=== PATIENT | female | born 1960 | race African-American/Black ===

== ENCOUNTER 2018-10-02 15:40 | Emergency (ER) | payer BC ==
[~2018-10-02] VITALS: Ht 167.6 cm; Wt 143.3 kg
[2018-10-02 15:40] VITALS: BP 202/95
--- NOTE | 2018-10-02 16:25 | PHYS DOC ---
Past Medical History Past Medical History: Arthritis, High Cholesterol, Hypertension Additional Past Medical Histor: blood clots Past Surgical History: Cholecystectomy, Hysterectomy, Splenectomy Alcohol Use: Rarely Drug Use: Marijuana Adult General Chief Complaint Chief Complaint: LOWEREXTREMITY INJURY HPI HPI Patient is a 57 year old AA female who presents to the ER with complaints of lateral right knee and lateral R ankle pain after a fall 2 days ago. Pt states she was leaving work on Wednesday at 1500 when she rolled her R ankle and fell. She has been applying ice and elevating the affected extremity but continues to have pain and swelling. Pt currently rates her pain an 8/10 at rest, she took 2 tramadol 3 hours prior to arrival. With weight bearing and palpation the pain increases to 10/10. ROS Pt denies any numbness, tingling, or weakness of affected extremity. She denies any head, neck, or back pain. She denies any LOC with the fall and denies any n/v since the fall. All other ROS is neg unless otherwise noted in HPI. Review of Systems Review of Systems See Above Current Medications Current Medications Current Medications Medications (Trade) Dose Ordered Sig/Darius Start Time Stop Time Status Last Admin Dose Admin Acetaminophen (Tylenol) 650 mg 1X ONCE 10/02/18 16:45 10/02/18 16:46 DC 10/02/18 17:02 650 MG Acetaminophen/ Hydrocodone Bitart (Lortab 5/325) 1 tab 1X ONCE 10/02/18 18:15 10/02/18 18:16 Allergies Allergies Allergies Coded Allergies Type Severity Reaction Last Updated Verified lisinopril Allergy Unknown 10/02/18 Yes naproxen Allergy Unknown 10/02/18 Yes Physical Exam Physical Exam See Above Constitutional: Well developed, well nourished, no acute distress, non-toxic appearance, obese. [] HENT: Normocephalic, atraumatic, bilateral external ears normal, nose normal. [] Eyes: conjunctiva normal, no discharge. [] Neck: Normal range of motion, no stridor. [] Cardiovascular:Heart rate regular rhythm Lungs & Thorax: Respirations even and unlabored, no retractions, no respiratory distress Skin: Warm, dry, no erythema, no rash. [] Extremities: R lateral ankle TTP, no deformity, no crepitus, limited ROM due to pain, 1+ edema; R lateral knee tightness, no cyanosis, no bruising, no clubbing, ROM intact, no edema. [] Neurologic: Alert and oriented X 3, no focal deficits noted. [] Psychologic: Affect normal, judgement normal, mood normal. [] Current Patient Data Vital Signs Vital Signs Date Time Temp Pulse Resp B/P (MAP) Pulse Ox O2 Delivery O2 Flow Rate FiO2 10/02/18 15:40 97.6 57 13 202/95 (130) 96 Room Air 97.6 EKG EKG [] Radiology/Procedures Radiology/Procedures PROCEDURE: ANKLE RIGHT 3V ANKLE RIGHT 3V Clinical Indication: Fall 2 days ago. Continued pain. Comparison: None. Findings: There is acute traumatic nondisplaced fracture of the lateral malleolus. Distal fracture line at the level of the tibial plafond. There is lateral ankle soft tissue swelling that is mild. There is tibiotalar joint space narrowing. There are small calcaneal bone spurs. IMPRESSION: Acute traumatic fracture of the lateral malleolus.[] PROCEDURE: KNEE RIGHT 3V KNEE RIGHT 3V Clinical Indication: Fall 2 days ago continued right knee pain. Comparison: None. Findings: Patella in anatomic position. There are tricompartmental marginal osteophytes. There is severe medial and lateral compartment joint space narrowing. No obvious joint effusion. There is no acute fracture. The mineralization is normal. IMPRESSION: No acute fracture. Course & Med Decision Making Course & Med Decision Making Pertinent Labs and Imaging studies reviewed. (See chart for details) dx: R knee pain, R lateral malleolus fx. Pt was placed in a stirrup splint and crutch gait instructions given. She was given 650 of Tylenol and 1 hydrocodone 5/325 mg tablet in the ER. Prescription written for hydrocodone 5/325 mg tabs #12. Follow up with Dr. Connelly, call in the morning to schedule an appointment. Patient verbalized an understanding of home care, medications, follow-up, and return to ED instructions and was in agreement with the plan of care. Dragon Disclaimer Dragon Disclaimer This electronic medical record was generated, in whole or in part, using a voice recognition dictation system. Departure Departure Impression: Primary Impression: Fracture of lateral malleolus of right ankle Disposition: HOME, SELF-CARE Condition: STABLE Referrals: LEX CONNELLY MD Patient Instructions: Ankle Fracture, [id number] Additional Instructions: Fill prescription(s) and use as directed. Recommend application of ice, elevation, and rest of affected extremity. Use the crutches that were provided. Wear the splint that was placed until follow up appointment with Dr. Connelly, call in the morning to schedule appointment. Return to the ER if your symptoms worsen. Scripts Hydrocodone Bit/Acetaminophen (HYDROCODONE-APAP 5-325 ) 1 Tab Tablet 1 TAB PO PRN Q6HRS PRN for PAIN for 3 Days, #12 TAB 0 Refills Prov: BETY CARLOS APRN 10/02/18 Splinting Splinting : Location: R ankle Hand-Made Type: orthoglass Splint: stirrup Pre-Proc Neuro Vasc Exam: normal Post-Proc Neuro Vasc Exam: normal, unchanged from pre-exam Progress Pt tolerated procedure well, no complications Problem Qualifiers Primary Impression: Fracture of lateral malleolus of right ankle Encounter type: initial encounter Fracture type: closed Fracture alignment: nondisplaced Qualified Codes: S82.64XA - Nondisplaced fracture of lateral malleolus of right fibula, initial encounter for closed fracture BETY CARLOS BULLION WEIGHER Oct 02, 2018 16:25
[2018-10-02] MEDS ORDERED: ACETAMINOPHEN 325 MG TABLET. PO ONE (16:45)
--- NOTE | 2018-10-02 17:18 | RAD ---
ANKLE RIGHT 3V Clinical Indication: Fall 2 days ago. Continued pain. Comparison: None. Findings: There is acute traumatic nondisplaced fracture of the lateral malleolus. Distal fracture line at the level of the tibial plafond. There is lateral ankle soft tissue swelling that is mild. There is tibiotalar joint space narrowing. There are small calcaneal bone spurs. IMPRESSION: Acute traumatic fracture of the lateral malleolus. Electronically signed by: Madhav Michel MD (10/02/2018 5:15 PM) [facility]
--- NOTE | 2018-10-02 17:20 | RAD ---
KNEE RIGHT 3V Clinical Indication: Fall 2 days ago continued right knee pain. Comparison: None. Findings: Patella in anatomic position. There are tricompartmental marginal osteophytes. There is severe medial and lateral compartment joint space narrowing. No obvious joint effusion. There is no acute fracture. The mineralization is normal. IMPRESSION: No acute fracture. Electronically signed by: Madhav Michel MD (10/02/2018 5:17 PM) [facility]
[2018-10-02] MEDS ORDERED: HYDR-2761 PO (17:50)
[2018-10-02] MEDS ORDERED: HYDROcodone/APAP 5/325MG 1 TAB TABLET PO ONE (18:15)
== END 2018-10-02 18:00 | disposition home or self-care (01) ==
LOC: ER 15:40
DX: S82.64XA Nondisplaced fracture of lateral malleolus of right fibula, initial encounter for closed fracture (principal); M25.561 Pain in right knee; M19.90 Unspecified osteoarthritis, unspecified site; E78.00 Pure hypercholesterolemia, unspecified; I10 Essential (primary) hypertension; Z90.49 Acquired absence of other specified parts of digestive tract; Z90.710 Acquired absence of both cervix and uterus; Z90.81 Acquired absence of spleen; Z88.8 Allergy status to other drugs, medicaments and biological substances; W18.39XA Other fall on same level, initial encounter; Y93.89 Activity, other specified; Y92.89 Other specified places as the place of occurrence of the external cause; Y99.0 Civilian activity done for income or pay
CPT/HCPCS: 29515; 73562; 73610; 99284